=== PATIENT | female | born 1965 | race American Indian/Alaskan Native ===

== ENCOUNTER → 2017-05-17 | Outpatient (CLI) | payer MEDICARE, MEDICAID ==
[2017-05-17 15:34] LABS: HEMATOCRIT 33.5 % (34.6-47.8); HEMOGLOBIN 10.9 g/dL (11.7-16.4); WHITE BLOOD COUNT 8.9 x10^3/uL (3.4-10)
[2017-05-17 15:47] LABS: BLOOD UREA NITROGEN 14 mg/dL (7-18)
[2017-05-17 15:50] LABS: ASPARTATE AMINO TRANSFERASE 11 U/L (15-37)
== END | disposition home or self-care (01) ==
LOC: LAB 14:59
PROVIDERS: ATTEND Family Medicine
DX: E11.65 Type 2 diabetes mellitus with hyperglycemia (principal)
CPT/HCPCS: 36415; 80053; 80061; 82043; 83036; 85027